=== PATIENT | female | born 1940 | race Caucasian/White ===

== ENCOUNTER 2017-05-26 08:43 | Observation (INO) | payer OTHER ==
[~2017-05-26] VITALS: Ht 157.5 cm; Wt 80.0 kg
--- NOTE | ~2017-05-26 | CR72 ---
[facility] A Service of [facility] & [facility] RADIOLOGY TEXT RESULTS PATIENT: MELISSA COLE LOCATION: [facility] 324-01 : 41 UNIT #: [id number] AGE: [address]: GRACE CARRIZALESUJ V SEX: F ORDER DR: [id number] [facility] [address] [place], [place] [address] [id number] E MR#: [id number] Acc #: [id number] NAME: MELISSA COLE : 1940 SEX: F STUDY DATE/TIME: 05/26/2017 9:45 UNIT: [facility] ROOM: STUDY DESCRIPTION: CR Chest Single View Portable Attending Physician: Jemma Jimenez M.D. Ordering Physician: Jemma Jimenez M.D. Primary Care Physician: No Primary Care Physician MEDICAL IMAGING REPORT This report is preliminary unless electronic signature is present EXAM AP view of the chest. COMPARISON May 05, 2017, April 16, 2017, and March 26, 2070. INDICATION 76-year-old female with a cough since 3:00 a.m. today, as well as chest pain. History of myocardial infarction and diabetes. FINDINGS No evidence of a pneumothorax. Evaluation of the left pulmonary apex is limited by overlapping bony structures. Dual-lead left chest pacemaker/defibrillator device appears grossly stable. Cardiomediastinal silhouette is stable allowing for differences in positioning. This is within normal limits. Calcified granuloma is stable in the left lower lobe. 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 No evidence of pneumothorax, pleural effusion, or acute airspace disease. IMPRESSION 1. Limited exam due to suboptimal positioning. No acute radiographic abnormality of the chest is seen. 2. Degenerative changes at the shoulders as described. Dictated by... Oracio Almanza M.D. THIS IS AN ELECTRONICALLY VERIFIED REPORT Oracio Almanza M.D. at 05/30/2017 11:42 AM [facility]w [facility] A Service of [facility] & [facility] RADIOLOGY TEXT RESULTS PATIENT: MELISSA COLE LOCATION: [facility] 324-01 : 41 UNIT #: [id number] AGE: [address]: WILLIAM CARRIZALES V SEX: F ORDER DR: TD: 05/26/2017 14:11 JOB #: [id number] MEDICAL IMAGING REPORT Page 1 of 1 COPY
--- NOTE | ~2017-05-26 | CT55 ---
[facility] A Service of [facility] RADIOLOGY TEXT RESULTS PATIENT: MELISSA COLE [facility] 324-01 : 41 UNIT #: [id number] AGE: [address]: GRACE CARRIZALESUJ V SEX: F ORDER DR: [id number] [facility] [address] [place], [place] [address] [id number] E MR#: [id number] Acc #: [id number] NAME: MELISSA COLE : 1940 SEX: F STUDY DATE/TIME: 05/26/2017 12:09 UNIT: [facility] ROOM: STUDY DESCRIPTION: CT Chest W Con Attending Physician: Jemma Jimenez M.D. Ordering Physician: Jemma Jimenez M.D. Primary Care Physician: Primary Care Physician No MEDICAL IMAGING REPORT This report is preliminary unless electronic signature is present EXAM Chest CT with contrast, 05/26/[address], 10/26/2016 PROCEDURE Axial contrast-enhanced chest CT with multiplanar reformats. This CT exam was performed with one or more of the following radiation dose reduction techniques: automatic exposure control, adjustment of mA and/or kV according to patient size, and iterative reconstruction. HISTORY Left-side chest and abdomen pain since 03:00 this morning. FINDINGS There is no pulmonary infiltrate, pleural effusion, pneumothorax or suspicious nodule. There is some linear scar in the right mid lateral lung. There is no mediastinal mass or adenopathy. There are extensive coronary atherosclerotic vascular calcifications. The aorta is normal in caliber. Limited visualized upper abdomen is unremarkable. The bony structures are normal. IMPRESSION Negative contrast-enhanced chest CT. No acute pulmonary process. There is coronary atherosclerotic vascular calcification but there is no pulmonary infiltrate, pleural effusion, pneumothorax or suspicious nodule. No acute abnormality is seen. Thoracic aorta is normal in caliber. Dictated by... Isaias Malik M.D. [facility] A Service [facility] RADIOLOGY TEXT RESULTS PATIENT: MELISSA COLE LOCATION: [facility] 324-01 : 41 UNIT #: [id number] AGE: [address]: WILLIAM CARRIZALES V SEX: F ORDER DR: THIS IS AN ELECTRONICALLY VERIFIED REPORT Isaias Malik M.D. at 05/31/2017 5:03 PM Denilson TD: 05/26/2017 15:23 JOB #: [id number] MEDICAL IMAGING REPORT Page 1 of 1 COPY
--- NOTE | ~2017-05-26 | EKG ---
PATIENT: MELISSA COLE UNIT #: [id number] Ventricular Rate: 124 BPM Atrial Rate: 124 BPM QRS Duration: 160 ms Q-T Interval: 404 ms QTC Calculation(Bezet): 580 ms Calculated R [place]: -58 degrees Calculated T [place]: 103 degrees Diagnosis Line: Ventricular-paced rhythm Diagnosis Line: Abnormal ECG Diagnosis Line: Diagnosis Line: Confirmed by AIDEN JOHNSON MD ([id number]) on 05/27/2017 Diagnosis Line: 5:52:44 PM INTERPRETING MD: ELIZABETH BURRIS
--- NOTE | ~2017-05-26 | DS ---
Unit #: [id number] #: [id number] Patient: MELISSA COLE [id number] [address] [address] [id number] I MR#: [id number] NAME: MELISSA COLE ROOM: 324 Age: 76 Sex: F Admission Date: 05/26/2017 : 1940 Discharge Date: 05/29/2017 Attending Physician: Phoenix Jenkins M.D. Primary Care Physician: No Primary Care Physician DISCHARGE SUMMARY PERTINENT HISTORY AND HOSPITAL COURSE The patient is a 76-year-old woman who presented with left flank pain. She has a history significant for coronary artery disease, hyperlipidemia, hypertension and CHF. During her admission she was found to have urinary tract infection and was started on IV antibiotics. The patient also had a transient episode of hypotension, which corrected after a 500 mL bolus of normal saline. Currently the patient is stable. Vitals are stable. Breathing comfortably. No urinary symptoms, and the patient will be discharged home today. MEDICATIONS AT DISCHARGE 1. Combivent inhalation q.8 hours p.r.n. 2. Magnesium oxide 400 mg p.o. b.i.d. 3. Lipitor 80 mg p.o. at bedtime. 4. Xanax 0.25 mg p.o. t.i.d. p.r.n. anxiety. 5. Coreg 6.25 mg p.o. b.i.d. 6. Dulera inhaler 13 gram inhalation b.i.d. 7. Bumex 1 mg p.o. b.i.d. 8. Lisinopril 2.5 mg p.o. daily. 9. Aspirin 81 mg p.o. once daily. 10. Plavix 75 mg p.o. once daily. 11. Potassium chloride 20 mEq p.o. b.i.d. 12. Nitroglycerin 0.4 mg sublingual p.r.n. 13. Keflex 500 mg p.o. q.12 hours for 5 days. DISCHARGE INSTRUCTIONS Patient to follow up with primary care physician. Dictated by... Mary Hurt/danica TD: 05/30/2017 13:39 JOB #: [id number] Unit #: [id number] #: [id number] Patient: MELISSA COLE DISCHARGE SUMMARY Page 1 of 1 X X DISCHARGE SUMMARY
--- NOTE | ~2017-05-26 | CT2 ---
[facility] A Service of [facility] & [facility] RADIOLOGY TEXT RESULTS PATIENT: MELISSA COLE LOCATION: [facility] 324-01 : 41 UNIT #: [id number] AGE: [address]: GRACE CARRIZALESUJ V SEX: F ORDER DR: [id number] [facility] [address] [place], [place] [address] [id number] E MR#: [id number] Acc #: [id number] NAME: MELISSA COLE : 1940 SEX: F STUDY DATE/TIME: 05/26/2017 12:09 UNIT: [facility] ROOM: STUDY DESCRIPTION: CT Abd and Pelv W Cont Attending Physician: Jemma Jimenez M.D. Ordering Physician: Jemma Jimenez M.D. Primary Care Physician: No Primary Care Physician MEDICAL IMAGING REPORT This report is preliminary unless electronic signature is present STUDY CT abdomen and pelvis with contrast, 05/26/2017. PROCEDURE Axial CT abdomen and pelvis with IV contrast with multiplanar reformats. This CT exam was performed with one or more of the following radiation dose reduction techniques: automatic exposure control, adjustment of mA and/or kV according to patient size, and iterative reconstruction. COMPARISON Prior CT without contrast dated 05/26/2017, at 10:55 a.m. CLINICAL HISTORY Left side abdominal pain. Abdominal distension. History of kidney stones. FINDINGS The liver, spleen, pancreas and adrenal glands are normal. The small exophytic left renal mass seen on the prior CT shows no enhancement. It is clearly benign and representing a faintly hyperdense cyst. The aorta is normal in caliber. 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 There is no bowel obstruction, intraabdominal mass, inflammatory change or abnormal fluid collection. Small hyperdense possibly polypoid small bowel lesions seen on the noncontrast CT are no longer present and almost undoubtedly represent small amounts of ingested material which have now moved through the bowel. No polyps are suspected. PELVIS: No pelvic mass, inflammatory change, hernia, bowel obstruction or adenopathy. There are spinal degenerative changes but no acute bony abnormality is seen. [facility]. [facility] A Service of [facility] & [facility] RADIOLOGY TEXT RESULTS PATIENT: MELISSA COLE LOCATION: [facility] 324-01 : 41 UNIT #: [id number] AGE: [address]: WILLIAM CARRIZALES V SEX: F ORDER DR: IMPRESSION 1. No renal or bowel or biliary obstruction or acute abnormality. 2. The small exophytic left renal lesion seen on the prior study shows no enhancement, and is clearly benign. 3. No further evaluation necessary. 4. The small lesions seen within the lumen of the small bowel on the earlier examination are no longer present and clearly represented some form of dense ingested material which is now moving through the intestinal stream. No polypoid lesions are suspected. No imaging follow up is required. 5. 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 This is a common finding. It is unchanged in appearance since a chest CT angiogram of 12/22/2016. It now has about 5 months stable follow up. There are no older studies for comparison, and a follow-up unenhanced CT abdomen and pelvis could be obtained in 6 to 12 months to reconfirm stability but the likelihood of additional growth is minimal. Dictated by... Isaias Malik M.D. THIS IS AN ELECTRONICALLY VERIFIED REPORT Isaias Malik M.D. at 05/31/2017 5:03 PM LENA/bogdan TD: 05/26/2017 15:09 JOB #: [id number] MEDICAL IMAGING REPORT Page 1 of 1 COPY
--- NOTE | ~2017-05-26 | CT4 ---
[facility] A Service of [facility] & [facility] RADIOLOGY TEXT RESULTS PATIENT: MELISSA COLE LOCATION: [facility] 324-01 : 41 UNIT #: [id number] AGE: [address]: GRACE CARRIZALESUJ V SEX: F ORDER DR: [id number] [facility] [address] [place], [place] [address] [id number] E MR#: [id number] Acc #: [id number] NAME: MELISSA COLE : 1940 SEX: F STUDY DATE/TIME: 05/26/2017 10:55 UNIT: [facility] ROOM: STUDY DESCRIPTION: CT Abd and Pelv Wo Cont Attending Physician: Jemma Jimenez M.D. Ordering Physician: Jemma Jimenez M.D. Primary Care Physician: No Primary Care Physician MEDICAL IMAGING REPORT This report is preliminary unless electronic signature is present EXAM CT abdomen and pelvis without IV contrast. COMPARISON CT chest dated March 26, [address] angiography of the chest dated December 22, [address] chest without dated October 26, 2016. INDICATION 76-year-old female with left flank abdominal pain since 3:00 a.m. today. History of renal calculi. TECHNIQUE Axial CT imaging of the abdomen and pelvis was performed without IV contrast. Coronal and sagittal reformats were constructed. Lack of IV contrast limits evaluation of adenopathy, vasculature, and viscera. This CT exam was performed with one or more of the following radiation dose reduction techniques: automatic exposure control, adjustment of mA and/or kV according to patient size, and iterative reconstruction. FINDINGS Tiny fat-containing umbilical hernia. Calcified injection granulomas are noted in the fat of the buttocks bilaterally. Bulky degenerative facet disease is seen at L4-L5 with less severe degenerative facet disease seen at multiple levels elsewhere in the lumbar spine. Severe degenerative disc and endplate change is seen at L2-L3, where there is a small posterior disc protrusion. There are small posterior disc protrusions at L3-L4 and L4-L5, as well as at L5-S1. Dextroscoliosis of the lumbar spine. Cardiac leads are incompletely imaged in the lower chest. There is calcification at the mitral valve. Bandlike atelectasis in the right lower lobe. Evaluation of the lungs is limited by motion. Calcified granuloma left lower lobe. [facility] A Service of [facility] & [facility] RADIOLOGY TEXT RESULTS PATIENT: MELISSA COLE LOCATION: [facility] 324-01 : 41 UNIT #: [id number] AGE: [address]: WILLIAM CARRIZALES V SEX: F ORDER DR: Prior cholecystectomy. Unenhanced liver, adrenal glands and spleen are unremarkable. There is fatty replacement of the pancreas. The distal splenic artery is diffusely calcified. No renal calculi. There is an exophytic lesion inferior pole of the right kidney measuring up to 7 mm, which is too small to characterize. This was excluded from field of view on October 26, [address] exams. The uterus appears unremarkable. There are calcifications of the parametrial arteries. No evidence of ureteral calculus. No hydronephrosis or hydroureter. Urinary bladder is fluid distended but otherwise unremarkable. No evidence of adnexal mass. No bowel obstruction. Appendix is not seen keeping with given history of appendectomy. There is diverticulosis of the left colon without evidence of acute diverticulitis. There are dense rounded polypoid densities seen within the small bowel in the upper abdomen. There are 2 such findings, one of which measures up to 7 mm and the other which measures up to 1 cm. These two findings are hyperdense and may reflect adherent ingested material within the small bowel. No free fluid or pneumoperitoneum. There is tortuosity of the abdominal aorta which is diffusely calcified. There is also calcification of the iliac arteries. Calcifications involving origins of the celiac, superior mesenteric, and bilateral renal arteries. No adenopathy is seen on this exam. IMPRESSION 1. No renal or ureteral calculi. 2. Prior cholecystectomy and appendectomy. 3. Minimal calcification at the mitral valve. Correlation for possible significant valvular pathology recommended. 4. Multilevel degenerative disc changes of the lumbar spine and degenerative facet disease as described in the body of the report. 5. Diffuse arterial calcification in the abdomen and pelvis. 6. Minimal diverticulosis without evidence of acute diverticulitis. 7. 6 mm exophytic hyperdense lesion extending from the inferior pole of the right kidney, too small to characterize. This may be better characterized on ultrasound, where it could possibly be shown to be cystic. Regardless, imaging followup would likely be indicated. If ultrasound is not performed, consider CT followup in 6-12 months with and without IV contrast. 8. Two hyperdense lesions along the wall of the small bowel seen in the upper abdomen, not definitely within the field of view previously. These have somewhat of a polypoid nature but could also reflect adherent ingested material in the bowel. Followup CT enterocleisis could be performed to exclude the possibility of a small bowel tumor. Given the shape, they have a benign appearance and again there is suggestion that these may possibly be calcified, also suggesting a benign etiology, possibly a calcified leiomyoma or polyp. [facility] A Service of [facility] RADIOLOGY TEXT RESULTS PATIENT: MELISSA COLE LOCATION: [facility] 324-01 : 41 UNIT #: [id number] AGE: [address]: GRACE CARRIZALESUJ V SEX: F ORDER DR: Dictated by... Oracio Almanza M.D. THIS IS AN ELECTRONICALLY VERIFIED REPORT Oracio Almanza M.D. at 05/31/2017 6:43 PM Ortega TD: 05/26/2017 14:40 JOB #: [id number] MEDICAL IMAGING REPORT Page 1 of 1 COPY
--- NOTE | ~2017-05-26 | HP ---
Unit #: [id number] #: [id number] Patient: MELISSA COLE [id number] [address] [address] [id number] E MR#: [id number] NAME: MELISSA COLE ROOM: Age: 76 Sex: F Admission Date: 05/26/2017 : 1940 Attending Physician: Jemma Jimenez M.D. Primary Care Physician: No Primary Care Physician HISTORY AND PHYSICAL CHIEF COMPLAINT Left flank pain. HISTORY OF PRESENT ILLNESS The patient is a 76-year-old female with a past medical history of coronary artery disease, hyperlipidemia, hypertension, possibly CHF who presented to the emergency department for evaluation of the above. History of obtained from family translating. The patient declines oil and gas superintendent phone. The patient states that she was in her usual state of health until the morning of admission, around 3:00 when she experienced flank pain. The pain is in the right flank and radiates to the groin. She has had nausea but no vomiting. She denies any diarrhea, no urinary symptoms. No chest pain. No cough or cold symptoms. In the emergency department CT of the abdomen and pelvis was done and showed nothing acute. She was given a 500 mL normal saline bolus. Blood pressure was initially 117/79 but dropped to 82/66 during the course of her evaluation in the emergency department. She is being admitted to [facility] for evaluation and further treatment. PAST MEDICAL HISTORY 1. Admission to [facility] in April (no records). 2. Coronary artery disease, status post stent placement, followed by Dr. Whitehead. 3. Hyperlipidemia. 4. Possibly CHF, status post AICD placement. 5. History of nephrolithiasis. PAST SURGICAL HISTORY 1. Cardiac stent placement. 2. AICD. 3. Appendectomy. 4. Cholecystectomy. SOCIAL HISTORY The patient denies tobacco or alcohol use. FAMILY HISTORY Notable for her mother having coronary artery disease. ALLERGIES No known allergies. HOME MEDICATIONS Tylenol, DuoNeb, Xanax, aspirin, atorvastatin, bumetanide, carvedilol Unit #: [id number] #: [id number] Patient: MELISSA COLE clopidogrel, docusate, Dulera, lisinopril, magnesium, nitroglycerin, potassium. Home medications will need to be reviewed and verified. REVIEW OF SYSTEMS A complete review of systems is negative except as indicated in the HPI. PHYSICAL EXAMINATION VITAL SIGNS: Temperature is 97.8, pulse 134, respiration 20, blood pressure 117/79, most recently 98/68, oxygen saturation 98% on room air. GENERAL: The patient is awake and alert in no acute distress. The patient is a very pleasant female in no acute distress. HEENT: Head is atraumatic. Mucous membranes are moist. NECK: Supple. Tracheal is midline. CARDIOVASCULAR: Regular rate and rhythm. LUNGS: Clear to auscultation bilaterally with no increased work of breathing. ABDOMEN: Soft, nontender with bowel sounds present in all four quadrants. EXTREMITIES: Nontender with no pedal edema. NEUROLOGIC: The patient is awake and alert. She follow commands. PSYCH: Mood and affect are normal. The patient is cooperative. SKIN: Skin of examined areas is warm and dry. DIAGNOSTIC STUDIES CARDIOLOGY STUDIES: EKG shows a paced rhythm with a rate of 124 BPM. IMAGING STUDIES: CT of the chest, abdomen and pelvis show nothing acute. Chest x-ray shows no acute findings. LABORATORY STUDIES: Lactic acid is 1.7. Troponin is less than 0.5. Urinalysis notable for 1+ leukocyte esterase, 1+ blood, 5-10 white blood cells, negative for bacteria, many squamous cells are present. Comprehensive metabolic panel notable for glucose of 173, amylase and lipase are normal. Complete blood count is essentially normal. ASSESSMENT The patient is a 76-year-old female with: 1. Hypotension. The patient received a 500 mL normal saline bolus, most recent blood pressure is 98/68. 2. Possible urinary tract infection, although the specimen appears to be contaminated with many squamous cells. She does have 1+ leukocyte esterase and 5-10 white blood cells. 3. Hyperlipidemia. 4. Coronary artery disease, status post stent placement. 5. Possible CHF, status post AICD. PLAN 1. Admit for observation to an intermediate level. 2. Healthy heart diet, passes bedside swallow. 3. Blood cultures x2. 4. Urine culture and sensitivity on urine in the lab. 5. Rocephin 1 g IV daily pending results of urine culture. 6. Serial cardiac enzymes. 7. Monitor blood pressure closely. 8. Get records from [facility], including echo if possible. 9. P.r.n. Tylenol. 10. P.r.n. Zofran. Unit #: [id number] #: [id number] Patient: MELISSA COLE 11. Check magnesium level. 12. Repeat labs in the morning. 13. SCDs for DVT prophylaxis. 14. Additional workup and consultants based on above. Dictated by Mary Flores/marlene TD: 05/26/2017 17:19 JOB #: [id number] HISTORY AND PHYSICAL Page 1 of 1 X Rashida Canchola MD X HISTORY AND PHYSICAL
[2017-05-26 09:55] LABS: POC - TROPONIN <0.05 ng/mL (<=0.05)
[2017-05-26 10:05] LABS: BASOPHIL# 0.1 X10e3 (0-0.3); BASOPHIL% 0.6 % (0-2.5); EOSINOPHIL# 0.2 X10e3 (0-0.7); EOSINOPHIL% 2.6 % (0.0-7.0); HEMOGLOBIN 13.1 gm/dL (12.0-16.0); LYMPHOCYTE# 1.7 X10e3 (1.0-3.5); LYMPHOCYTE% 20.9 % (17.0-45.0); MEAN CELL VOLUME 84.6 FL (83-96); MEAN CORPUSCULAR HEMOGLOBIN 28.4 PG (28-34); MEAN CORPUSCULAR HGB CONC 33.6 g/dL (30-36); MEAN PLATELET VOLUME 8.5 FL (6.5-11.5); MONOCYTE# 0.5 X10e3 (0-1.0); MONOCYTE% 6.6 % (3.0-12.0); NEUTROPHIL# 5.7 X10e3 (1.5-7.1); NEUTROPHIL% 69.3 % (40-75); PLATELET COUNT 200 X10e3 (140-420); RED BLOOD COUNT 4.61 X10e (3.90-5.30); RED CELL DISTRIBUTION WIDTH 15.6 % (11.0-15.5); WHITE BLOOD COUNT 8.2 X10e3 (4.0-10.5)
[2017-05-26 10:07] LABS: DIFF IND NO
[2017-05-26 10:39] LABS: ALBUMIN SERUM 3.9 g/dL (3.5-5.0); BILIRUBIN, DIRECT 0.1 mg/dL (0.0-0.2); BILIRUBIN,INDIRECT 0.3 mg/dL (0.0-0.9); BILIRUBIN,TOTAL 0.4 mg/dL (0.2-2.0); BUN/CREATININE RATIO 20.9; CALCIUM SERUM 9.1 mg/dL (8.4-10.2); CREATININE SERUM 1.1 mg/dL (0.6-1.4); GLOM FILT RATE Estimated 49.1 mL/min (>60); POTASSIUM 4.4 mmol/L (3.5-5.1); PROTEIN TOTAL SERUM 6.7 g/dL (6.0-8.3)
[2017-05-26 11:09] LABS: URINE SOURCE CLEAN CATCH
[2017-05-26 11:29] LABS: URINE APPEARANCE CLOUDY; URINE BILIRUBIN NEG (NEG); URINE BLOOD 1+ (NEG); URINE COLOR YELLOW; URINE GLUCOSE NEG (NEG); URINE KETONE NEG (NEG); URINE LEUKOCYTE ESTERASE 1+ (NEG); URINE NITRATE NEG (NEG); URINE PROTEIN NEG (NEG); URINE SPECIFIC GRAVITY 1.017 (1.003-1.035); URINE UROBILINOGEN 0.2 MG/DL (NEG)
[2017-05-26 11:32] LABS: CULTURE INDICATED? YES; URINE BACTERIA AUWI NEG (NEGATIVE); URINE SQUAMOUS EPITHELIAL CELL MANY /[HPF]
[2017-05-26 12:55] LABS: POC - CKMB 1.4 ng/mL (0.0-7.9); POC - TROPONIN <0.05 ng/mL (<=0.05)
[2017-05-26] MEDS ORDERED: ALB/IPRATROPIUM/1 E1 INH (16:47)
[2017-05-26] MEDS ORDERED: ASPIRIN81 M2 PO (16:48)
[2017-05-26] MEDS ORDERED: XANAX0.5 M1 DOB (16:48)
[2017-05-26] MEDS ORDERED: COREG6.25 MG PO (16:49)
[2017-05-26] MEDS ORDERED: BUMEX1 MG PO (16:49)
[2017-05-26] MEDS ORDERED: LIPITOR80 MG PO (16:49)
[2017-05-26] MEDS ORDERED: CLOPIDOGREL75 MG PO (16:49)
[2017-05-26] MEDS ORDERED: DULERA 200 MCG/13 GM INH (16:50)
[2017-05-26] MEDS ORDERED: LISINOPRIL2.5 MG PO (16:50)
[2017-05-26] MEDS ORDERED: MAG-OX 400400 M1 PO (16:50)
[2017-05-26] MEDS ORDERED: NITROGLYGERIN0.4 MG SL (16:52)
[2017-05-26] MEDS ORDERED: POTASSIUM CHLO10 MEQ PO (16:53)
[2017-05-26 21:21] LABS: %MB 6.3 % (0.0-4.0); MB 4.3 ng/ml
[2017-05-27 01:10] LABS: BASOPHIL# 0.1 X10e3 (0-0.3); BASOPHIL% 0.8 % (0-2.5); EOSINOPHIL# 0.2 X10e3 (0-0.7); EOSINOPHIL% 3.5 % (0.0-7.0); HEMATOCRIT 36.2 % (35.0-45.0); HEMOGLOBIN 12.2 gm/dL (12.0-16.0); LYMPHOCYTE# 1.9 X10e3 (1.0-3.5); LYMPHOCYTE% 30.1 % (17.0-45.0); MEAN CELL VOLUME 84.4 FL (83-96); MEAN CORPUSCULAR HEMOGLOBIN 28.4 PG (28-34); MEAN CORPUSCULAR HGB CONC 33.6 g/dL (30-36); MEAN PLATELET VOLUME 8.2 FL (6.5-11.5); MONOCYTE# 0.5 X10e3 (0-1.0); MONOCYTE% 7.3 % (3.0-12.0); NEUTROPHIL# 3.6 X10e3 (1.5-7.1); NEUTROPHIL% 58.3 % (40-75); PLATELET COUNT 169 X10e3 (140-420); RED BLOOD COUNT 4.29 X10e (3.90-5.30); RED CELL DISTRIBUTION WIDTH 15.6 % (11.0-15.5); WHITE BLOOD COUNT 6.2 X10e3 (4.0-10.5)
[2017-05-27 01:18] LABS: DIFF IND NO
[2017-05-27 01:24] LABS: ALBUMIN SERUM 3.9 g/dL (3.5-5.0); BILIRUBIN,TOTAL 0.8 mg/dL (0.2-2.0); BUN/CREATININE RATIO 22.72; CALCIUM SERUM 8.9 mg/dL (8.4-10.2); CREATININE SERUM 1.1 mg/dL (0.6-1.4); GLOM FILT RATE Estimated 49.1 mL/min (>60); MAGNESIUM 2.2 mg/dL (1.6-3.0); POTASSIUM 4.5 mmol/L (3.5-5.1); PROTEIN TOTAL SERUM 6.6 g/dL (6.0-8.3)
[2017-05-27 01:40] LABS: %MB 6.9 % (0.0-4.0); MB 4.6 ng/ml
[2017-05-28 05:39] LABS: HEMATOCRIT 33.1 % (35.0-45.0); HEMOGLOBIN 11.3 gm/dL (12.0-16.0); MEAN CELL VOLUME 83.9 FL (83-96); MEAN CORPUSCULAR HEMOGLOBIN 28.6 PG (28-34); MEAN CORPUSCULAR HGB CONC 34.1 g/dL (30-36); MEAN PLATELET VOLUME 8.1 FL (6.5-11.5); RED BLOOD COUNT 3.95 X10e (3.90-5.30); RED CELL DISTRIBUTION WIDTH 15.5 % (11.0-15.5); WHITE BLOOD COUNT 5.3 X10e3 (4.0-10.5)
[2017-05-28 06:40] LABS: BUN/CREATININE RATIO 24.54; CREATININE SERUM 1.1 mg/dL (0.6-1.4); GLOM FILT RATE Estimated 49.1 mL/min (>60); POTASSIUM 4.3 mmol/L (3.5-5.1)
[2017-05-29] MEDS ORDERED: HYDROCODON-ACE1 EAC7 PO (12:29)
[2017-05-29] MEDS ORDERED: KEFLEX500 MG PO (12:30)
[2017-05-29] MEDS ORDERED: COLACE PO (12:31)
== END 2017-05-29 18:28 | disposition home or self-care (01) | DRG 690 ==
LOC: CED 08:43 → C3A PCU 15:45 → CED 17:19 → C3A PCU 17:28
PROVIDERS: Emergency Medicine; Family Medicine
DX: N39.0 Urinary tract infection, site not specified (principal); I25.10 Atherosclerotic heart disease of native coronary artery without angina pectoris; I11.9 Hypertensive heart disease without heart failure; I50.9 Heart failure, unspecified; I25.2 Old myocardial infarction; E78.5 Hyperlipidemia, unspecified; I95.9 Hypotension, unspecified; E11.9 Type 2 diabetes mellitus without complications; Z87.442 Personal history of urinary calculi; Z79.02 Long term (current) use of antithrombotics/antiplatelets; Z79.82 Long term (current) use of aspirin; Z79.899 Other long term (current) drug therapy; Z95.5 Presence of coronary angioplasty implant and graft; Z95.810 Presence of automatic (implantable) cardiac defibrillator; Z90.49 Acquired absence of other specified parts of digestive tract
CPT/HCPCS: 36415; 71010; 71260; 74176; 74177; 80048; 80053; 80076; 81003; 82150; 82550; 82553; 82947; 83605; 83690; 83735; 84484; 85025; 85027; 86850; 86900; 86901; 87040; 87086; 93005; 94640; 94664; 94760; 96365; 96374; 96375; 96376; 99285; G0378; J0696; J1885; J2270; J2405; Q9967